=== PATIENT | male | born 1950 | race Caucasian/White ===

== ENCOUNTER → 2018-10-03 | Day surgery (SDC) | payer OTHER ==
[~2018-10-03] MED LIST: NORVASC2.5 MG PO
== END | disposition home or self-care (01) ==
LOC: ADM 09-30 09:45 → CIR.AMB 07:03
DX: M75.121 Complete rotator cuff tear or rupture of right shoulder, not specified as traumatic (principal)

== ENCOUNTER 2019-06-12 06:00 | Day surgery (SDC) | payer OTHER ==
[~2019-06-12 06:00] MED LIST changes: +NASONEX17 GM; +SINGULAIR10 MG PO; +ZANTAC300 MG PO
== END 2019-06-12 13:00 | disposition home or self-care (01) ==
LOC: CIR.AMB 06:00
DX: M75.01 Adhesive capsulitis of right shoulder (principal); M65.811 Other synovitis and tenosynovitis, right shoulder